=== PATIENT | female | born 1955 | race Caucasian/White ===

== ENCOUNTER 2016-12-27 21:03 | Emergency (ER) | payer MEDICAID ==
[~2016-12-27] VITALS: Ht 134.6 cm; Wt 68.2 kg
[~2016-12-27 21:03] MED LIST: ASPI-556 PO; GLIP10 PO; LISI-662 PO; METF500T4 PO; METO-323 PO; PRAV20TA4 PO
[2016-12-27 21:22] LABS: GLUCOSE COMMENT 1 Doctor Notified; GLUCOSE,POINT OF CARE 190 MG/DL (70-110)
[2016-12-27 21:27] VITALS: BP 147/86
== END 2016-12-27 21:51 | disposition home or self-care (01) ==
LOC: EMS 21:04
DX: S05.02XA Injury of conjunctiva and corneal abrasion without foreign body, left eye, initial encounter (principal); E11.9 Type 2 diabetes mellitus without complications; I10 Essential (primary) hypertension; Z79.82 Long term (current) use of aspirin; W22.8XXA Striking against or struck by other objects, initial encounter; Y93.89 Activity, other specified; Y92.89 Other specified places as the place of occurrence of the external cause; Y99.8 Other external cause status
CPT/HCPCS: 82962; 99283

== ENCOUNTER 2019-06-13 14:56 | Inpatient (IN) | payer MEDICAID ==
[~2019-06-13] VITALS: Ht 149.9 cm; Wt 70.9 kg
[~2019-06-13 14:56] MED LIST changes: +METF-960 PO; -METF500T4 PO; -METO-323 PO; +METO-408 PO
[2019-06-13 15:15] LABS: GLUCOSE,POINT OF CARE 184 MG/DL (70-110)
[2019-06-13 16:48] LABS: APPEARANCE,URINE CLEAR (CLEAR); BILIRUBIN,URINE NEGATIVE (NEGATIVE); GLUCOSE, URINE (UA) NEGATIVE (NEGATIVE); KETONES,URINE TRACE mg/dL (NEGATIVE); LEUKOCYTE ESTERASE ,URINE SMALL (NEGATIVE); NITRATE,URINE NEGATIVE (NEGATIVE); OCCULT BLOOD,URINE SMALL (NEGATIVE); PROTEIN,URINE POS 1+ (NEGATIVE); UROBILINOGEN,URINE 0.2 mg/dL (<=1.0)
[2019-06-13 16:58] LABS: BASOPHILS % (AUTO) 0.2 % (0.0-2.0); EOSINOPHILS % (AUTO) 1.8 % (1.0-6.0); HEMATOCRIT 43.4 % (36-46); HEMOGLOBIN 13.8 g/dL (12.0-16.0); LYMPHOCYTES # (AUTO) 0.6 K/uL (1.0-4.8); LYMPHOCYTES % (AUTO) 4.8 % (22.0-44.0); MEAN CORPUSCULAR HEMOGLOBIN 28.7 pg (26.0-34.0); MEAN CORPUSCULAR HGB CONC 31.7 G/dL (31.0-37.0); MEAN CORPUSCULAR VOLUME 90 fL (80-100); MONOCYTES # (AUTO) 0.4 K/uL (0.1-1.0); MONOCYTES % (AUTO) 3.3 % (2.0-9.0); NEUTROPHILS # (AUTO) 10.6 K/uL (1.8-7.7); NEUTROPHILS % (AUTO) 89.9 % (40.0-70.0); PLATELET COUNT (AUTO) 202 K/uL (150-450); RED CELL DISTRIBUTION WIDTH 14.1 % (11.5-14.5)
[2019-06-13] MEDS ORDERED: ACETAMINOPHEN 500 MG TABLET PO ONE (17:00)
[2019-06-13] MEDS ORDERED: ONDANSETRON HCL 4 MG/2 ML VIAL IVP ONE (17:00)
[2019-06-13] MEDS ORDERED: MAG HYDROX/AL HYDROX/SIMETH 30 ML SUSP UDCUP PO ONE (17:00)
[2019-06-13] MEDS ORDERED: FAMOTIDINE 10 MG/ML 2 ML VIAL IVP ONE (17:00)
[2019-06-13 17:01] LABS: BACTERIA,URINE Few /HPF (None Seen); RBC,URINE 0-2 /HPF (0-2); SQUAMOUS EPITHELIAL CELL,UR Moderate /LPF (None Seen)
[2019-06-13 17:02] LABS: MUCUS,URINE Few LPF (None Seen)
[2019-06-13 17:08] LABS: ANION GAP 11 mmol/L (8-16); CARBON DIOXIDE 24 mmol/L (22-29); CHLORIDE 104 mmol/L (98-107); GLOMERULAR FILTR. RATE CALC > 60 mL/min (>60); GLUCOSE,RANDOM 196 mg/dL (70-110); SODIUM SERUM 139 mmol/L (136-145); UREA NITROGEN, BLOOD 19 mg/dL (7-18)
[2019-06-13 17:13] LABS: ALANINE AMINOTRANSFERASE 15 U/L (12-78); ALKALINE PHOSPHATASE 122 U/L (46-116); ASPARTATE AMINOTRANSFERASE 18 U/L (15-37); BILIRUBIN,TOTAL 0.5 mg/dL (0.1-1.0); LIPASE 355 U/L (73-393); TOTAL PROTEIN, SERUM 7.8 g/dL (6.4-8.2)
[2019-06-13] MEDS ORDERED: SODIUM CHLORIDE 0.9% 100 ML ONE (18:28)
[2019-06-13] MEDS ORDERED: IOVERSOL 350 MG/ML 150 ML VIAL ONE (18:28)
[2019-06-13 21:19] LABS: GLUCOSE,POINT OF CARE 152 MG/DL (70-110)
[2019-06-13] MEDS ORDERED: DEXTROSE 50%-WATER 25 GM/50 ML SYRINGE IVP PRN (21:45)
[2019-06-13] MEDS ORDERED: POTASSIUM CHLORIDE 20 MEQ ER TABLET PO PRN (21:45)
[2019-06-13] MEDS ORDERED: MAGNESIUM SULFATE 4 GM/WATER 100 ML IV PRN (21:45)
[2019-06-13] MEDS ORDERED: 0.9% SODIUM CHLORIDE 10 ML SYRINGE IVP PRN (21:45)
[2019-06-13] MEDS ORDERED: MAGNESIUM OXIDE 400 MG TABLET PO PRN (21:45)
[2019-06-13] MEDS ORDERED: MAGNESIUM SULFATE 2 GM/WATER 50 ML IV PRN (21:45)
[2019-06-13] MEDS ORDERED: INSULIN LISPRO 100 UNITS/ML SQ PRN (21:45)
[2019-06-13] MEDS ORDERED: ONDANSETRON HCL 4 MG/2 ML VIAL IVP PRN (21:45)
[2019-06-13] MEDS ORDERED: POTASSIUM CHL 10 MEQ/WATER 50 ML IV PRN (21:45)
[2019-06-14] MEDS: HEPARIN SODIUM,PORCINE 5,000 UNITS/ML VIAL SQ SCH ×2 (00:15→09:38)
[2019-06-14 05:56] LABS: GLUCOSE,POINT OF CARE 160 MG/DL (70-110)
[2019-06-14 07:35] LABS: GLUCOSE,POINT OF CARE 174 MG/DL (70-110)
[2019-06-14 08:27] LABS: BASOPHILS % (AUTO) 0.6 % (0.0-2.0); EOSINOPHILS % (AUTO) 4.5 % (1.0-6.0); HEMATOCRIT 41.8 % (36-46); HEMOGLOBIN 13.5 g/dL (12.0-16.0); LYMPHOCYTES % (AUTO) 18.7 % (22.0-44.0); MEAN CORPUSCULAR HEMOGLOBIN 29.1 pg (26.0-34.0); MEAN CORPUSCULAR HGB CONC 32.3 G/dL (31.0-37.0); MEAN CORPUSCULAR VOLUME 90 fL (80-100); MONOCYTES # (AUTO) 0.3 K/uL (0.1-1.0); MONOCYTES % (AUTO) 5.7 % (2.0-9.0); NEUTROPHILS # (AUTO) 3.7 K/uL (1.8-7.7); NEUTROPHILS % (AUTO) 70.5 % (40.0-70.0); PLATELET COUNT (AUTO) 191 K/uL (150-450); RED BLOOD CELL COUNT(AUTO) 4.64 MIL/uL (4.00-5.20); RED CELL DISTRIBUTION WIDTH 13.8 % (11.5-14.5)
[2019-06-14] MEDS ORDERED: PANTOPRAZOLE SODIUM 40 MG DR TABLET PO SCH (09:00)
[2019-06-14] MEDS ORDERED: PRAVASTATIN SODIUM 20 MG TABLET PO SCH (09:00)
[2019-06-14] MEDS ORDERED: LISINOPRIL 20 MG TABLET PO SCH (09:00)
[2019-06-14] MEDS ORDERED: METOPROLOL SUCCINATE 25 MG ER TABLET PO SCH (09:00)
[2019-06-14] MEDS ORDERED: ASPIRIN 81 MG EC TABLET PO SCH (09:00)
[2019-06-14 09:02] LABS: ANION GAP 8 mmol/L (8-16); CALCIUM, TOTAL 8.6 mg/dL (8.8-10.5); CARBON DIOXIDE 26 mmol/L (22-29); CHLORIDE 104 mmol/L (98-107); CREATININE 0.78 mg/dL (0.60-1.30); GLOMERULAR FILTR. RATE CALC > 60 mL/min (>60); GLUCOSE,RANDOM 175 mg/dL (70-110); POTASSIUM 3.9 mmol/L (3.5-5.1); SODIUM SERUM 138 mmol/L (136-145); UREA NITROGEN, BLOOD 15 mg/dL (7-18)
[2019-06-14 09:47] VITALS: BP 122/89
[2019-06-14 12:36] VITALS: BP 126/57
[2019-06-14] MEDS ORDERED: MAG HYDROX/AL HYDROX/SIMETH 30 ML SUSP UDCUP PO ONE (15:00)
[2019-06-14 15:47] VITALS: BP 120/72
[2019-06-15 20:20] LABS: GLUCOMETER DEV NAME(LOC) 5S.2A; GLUCOSE,POINT OF CARE 235 MG/DL (70-110)
== END 2019-06-14 15:30 | disposition home or self-care (01) | DRG 198 ==
LOC: EMS 14:57 → 5S 06-14 04:30
PROVIDERS: ADMIT Internal Medicine; ATTEND Internal Medicine
DX: I20.8 Other forms of angina pectoris (principal); E11.9 Type 2 diabetes mellitus without complications; I10 Essential (primary) hypertension; E78.5 Hyperlipidemia, unspecified; R00.0 Tachycardia, unspecified; E78.00 Pure hypercholesterolemia, unspecified; Z88.0 Allergy status to penicillin; Z82.49 Family history of ischemic heart disease and other diseases of the circulatory system; Z83.3 Family history of diabetes mellitus; Z90.13 Acquired absence of bilateral breasts and nipples; Z79.899 Other long term (current) drug therapy
CPT/HCPCS: 71260; 72193; 74160; 83735; 87086; 93005; 93306; G0378; J1644; J2405; J3490; J7050

== ENCOUNTER 2022-06-04 21:40 | Emergency (ER) | payer MEDICAID, OTHER ==
[~2022-06-04] VITALS: Ht 147.3 cm; Wt 70.9 kg
[~2022-06-04 21:40] MED LIST changes: -GLIP10 PO; +GLIP10TA10 PO; -LISI-662 PO; +LISI-894 PO; +METF-1211 PO; -METF-960 PO
[2022-06-04] MEDS ORDERED: ACETAMINOPHEN 500 MG TABLET PO ONE (22:30)
[2022-06-04 23:37] VITALS: BP 142/79
== END 2022-06-05 00:12 | disposition home or self-care (01) ==
LOC: EMS 21:41
DX: S93.524A Sprain of metatarsophalangeal joint of right lesser toe(s), initial encounter (principal); E11.9 Type 2 diabetes mellitus without complications; E78.00 Pure hypercholesterolemia, unspecified; I10 Essential (primary) hypertension; Z90.13 Acquired absence of bilateral breasts and nipples; Z88.0 Allergy status to penicillin; X58.XXXA Exposure to other specified factors, initial encounter; Y93.89 Activity, other specified; Y92.89 Other specified places as the place of occurrence of the external cause; Y99.8 Other external cause status
CPT/HCPCS: 99283

== ENCOUNTER 2022-08-05 12:57 | Emergency (ER) | payer OTHER ==
[~2022-08-05] VITALS: Ht 154.9 cm; Wt 77.3 kg
[2022-08-05] MEDS ORDERED: ACETAMINOPHEN 160 MG/5 ML SUSPENSION UDCUP PO ONE (13:30)
[2022-08-05] MEDS ORDERED: KETOROLAC TROMETHAMINE 30 MG/ML VIAL IVP ONE (13:30)
[2022-08-05] MEDS ORDERED: SODIUM CHLORIDE 0.9% 2,300 ML IV ONE (13:30)
[2022-08-05] MEDS ORDERED: 0.9% SODIUM CHLORIDE 10 ML SYRINGE IVP PRN (13:30)
[2022-08-05] MEDS ORDERED: CefTRIAXone 1 GM/DEXTROSE 50 ML IV ONE (13:30)
[2022-08-05 13:59] LABS: BASOPHILS % (AUTO) 0.5 % (0.0-2.0); EOSINOPHILS % (AUTO) 0 % (1.0-6.0); HEMOGLOBIN 13.2 g/dL (12.0-16.0); LYMPHOCYTES # (AUTO) 1.4 K/uL (1.0-4.8); LYMPHOCYTES % (AUTO) 7.9 % (22.0-44.0); MEAN CORPUSCULAR HEMOGLOBIN 29.5 pg (26.0-34.0); MEAN CORPUSCULAR VOLUME 89 fL (80-100); MONOCYTES # (AUTO) 0.9 K/uL (0.1-1.0); MONOCYTES % (AUTO) 5.3 % (2.0-9.0); NEUTROPHILS # (AUTO) 15.1 K/uL (1.8-7.7); PLATELET COUNT (AUTO) 194 K/uL (150-450); RED BLOOD CELL COUNT(AUTO) 4.49 MIL/uL (4.00-5.20); RED CELL DISTRIBUTION WIDTH 13.8 % (11.5-14.5)
[2022-08-05 14:00] LABS: NEUTROPHILS % (AUTO) 86.3 % (40.0-70.0)
[2022-08-05 14:09] LABS: CALCIUM, TOTAL 9.4 mg/dL (8.8-10.5); CREATININE 0.94 mg/dL (0.60-1.30); POTASSIUM 4.2 mmol/L (3.5-5.1)
[2022-08-05 14:10] LABS: COVID AG,FIA SOURCE NASAL SWAB
[2022-08-05 14:15] LABS: ALBUMIN 3.3 g/dL (3.4-5.0); BILIRUBIN,TOTAL 0.4 mg/dL (0.1-1.0)
[2022-08-05 14:22] LABS: LACTIC ACID 1.4 mmol/L (0.4-2.0)
[2022-08-05 14:28] LABS: RAPID GROUP A STREP POSITIVE (NEGATIVE)
[2022-08-05] MEDS ORDERED: LIDOCAINE 2% VISCOUS 15 ML SOLUTION UDCUP PO ONE (14:45)
[2022-08-05 14:50] LABS: INFLUENZA TYPE A NEGATIVE FOR TYPE A (NEGATIVE); INFLUENZA TYPE B NEGATIVE FOR TYPE B (NEGATIVE)
[2022-08-05] MEDS ORDERED: CEPH-558 PO (15:13)
[2022-08-05] MEDS ORDERED: IBUP-2759 PO (15:13)
[2022-08-05] MEDS ORDERED: ACET12.54 PO (15:13)
[2022-08-05 15:36] VITALS: BP 120/70
== END 2022-08-05 15:40 | disposition home or self-care (01) ==
LOC: EMS 13:07
DX: R52 Pain, unspecified (principal); J02.0 Streptococcal pharyngitis; E11.65 Type 2 diabetes mellitus with hyperglycemia; E11.9 Type 2 diabetes mellitus without complications; E78.00 Pure hypercholesterolemia, unspecified; I10 Essential (primary) hypertension; Z88.0 Allergy status to penicillin; Z90.13 Acquired absence of bilateral breasts and nipples; Z20.822 Contact with and (suspected) exposure to COVID-19
CPT/HCPCS: 99291; 96365; 71045; 96375; 87426; 80053; 82962; 83605; 84484; 85025; 87040; 87430; 87804; 36415; 93005; J0696; J1885; J7030; 96374

== ENCOUNTER 2022-08-26 08:47 | Emergency (ER) | payer OTHER ==
[~2022-08-26] VITALS: Ht 154.9 cm; Wt 67.3 kg
[~2022-08-26 08:47] MED LIST changes: +ACET12.54 PO; +CEPH-558 PO; +IBUP-2759 PO
[2022-08-26 09:30] LABS: COVID AG,FIA SOURCE NASAL SWAB
[2022-08-26 10:04] LABS: RAPID GROUP A STREP NEGATIVE (NEGATIVE)
[2022-08-26 10:26] LABS: INFLUENZA TYPE A NEGATIVE FOR TYPE A (NEGATIVE); INFLUENZA TYPE B NEGATIVE FOR TYPE B (NEGATIVE)
[2022-08-26] MEDS ORDERED: KETOROLAC TROMETHAMINE 60 MG/2 ML VIAL IM ONE (12:30)
[2022-08-26 13:09] LABS: BASOPHILS % (AUTO) 0.4 % (0.0-2.0); EOSINOPHILS % (AUTO) 2.6 % (1.0-6.0); HEMATOCRIT 37.4 % (36-46); HEMOGLOBIN 12.4 g/dL (12.0-16.0); LYMPHOCYTES # (AUTO) 1.8 K/uL (1.0-4.8); LYMPHOCYTES % (AUTO) 24.1 % (22.0-44.0); MEAN CORPUSCULAR HEMOGLOBIN 30.8 pg (26.0-34.0); MEAN CORPUSCULAR HGB CONC 33.2 G/dL (31.0-37.0); MEAN CORPUSCULAR VOLUME 93 fL (80-100); MONOCYTES # (AUTO) 0.4 K/uL (0.1-1.0); MONOCYTES % (AUTO) 4.8 % (2.0-9.0); NEUTROPHILS # (AUTO) 5.1 K/uL (1.8-7.7); NEUTROPHILS % (AUTO) 68.1 % (40.0-70.0); PLATELET COUNT (AUTO) 237 K/uL (150-450); RED BLOOD CELL COUNT(AUTO) 4.03 MIL/uL (4.00-5.20); RED CELL DISTRIBUTION WIDTH 13.7 % (11.5-14.5)
[2022-08-26 13:16] LABS: ANION GAP 7 mmol/L (8-16); CALCIUM, TOTAL 9.3 mg/dL (8.8-10.5); CARBON DIOXIDE 27 mmol/L (22-29); CHLORIDE 104 mmol/L (98-107); CREATININE 0.68 mg/dL (0.60-1.30); GLUCOSE,RANDOM 189 mg/dL (70-110); POTASSIUM 4.3 mmol/L (3.5-5.1); SODIUM SERUM 138 mmol/L (136-145); UREA NITROGEN, BLOOD 12 mg/dL (7-18)
[2022-08-26 13:19] LABS: GLOMERULAR FILTR. RATE CALC > 60 mL/min (>60)
[2022-08-26 13:23] LABS: ALANINE AMINOTRANSFERASE 22 U/L (12-78); ALBUMIN 3.2 g/dL (3.4-5.0); ALKALINE PHOSPHATASE 111 U/L (46-116); ASPARTATE AMINOTRANSFERASE 16 U/L (15-37); BILIRUBIN,TOTAL 0.3 mg/dL (0.1-1.0); TOTAL PROTEIN, SERUM 7.9 g/dL (6.4-8.2)
[2022-08-26 13:32] LABS: C-REACTIVE PROTEIN QUANT 2.65 mg/dL (0.00-0.30)
[2022-08-26] MEDS ORDERED: IBUP-1554 PO (15:22)
[2022-08-26] MEDS ORDERED: BACL10TA PO (15:22)
[2022-08-26 15:34] VITALS: BP 145/70
== END 2022-08-26 15:41 | disposition home or self-care (01) ==
LOC: EMS 08:50
DX: M54.2 Cervicalgia (principal); M54.89 Other dorsalgia; E11.65 Type 2 diabetes mellitus with hyperglycemia; E78.00 Pure hypercholesterolemia, unspecified; I10 Essential (primary) hypertension; Z90.13 Acquired absence of bilateral breasts and nipples; Z88.0 Allergy status to penicillin; Z20.822 Contact with and (suspected) exposure to COVID-19
CPT/HCPCS: 99285; 71045; 87426; 80053; 82962; 84484; 85025; 86140; 87430; 87804; 36415; 72040; 72070; 93005; 96372; J1885

== ENCOUNTER 2023-08-30 12:03 | Emergency (ER) | payer OTHER ==
[~2023-08-30] VITALS: Ht 149.9 cm; Wt 63.6 kg
[~2023-08-30 12:03] MED LIST changes: -ACET12.54 PO; -ASPI-556 PO; +BACL10TA PO; +IBUP-1554 PO; -IBUP-2759 PO; +IBUP-45 PO
[2023-08-30 12:14] VITALS: BP 147/76; PULSE 74; RESP 16; TEMP 98.4
[2023-08-30 12:45] LABS: APPEARANCE,URINE HAZY (CLEAR); COLOR,URINE DARK ORANGE (YELLOW); GLUCOSE, URINE (UA) 300-500 mg/dL (NEGATIVE); KETONES,URINE NEGATIVE (NEGATIVE); LEUKOCYTE ESTERASE ,URINE MODERATE (NEGATIVE); NITRATE,URINE POSITIVE (NEGATIVE); OCCULT BLOOD,URINE LARGE (NEGATIVE); PH,URINE 5.5 (5.0-8.0); PROTEIN,URINE 30-70 mg/dL (NEGATIVE); SPECIFIC GRAVITIY, URINE 1.023 (1.003-1.030)
[2023-08-30 12:46] LABS: BILIRUBIN,URINE SMALL (NEGATIVE)
[2023-08-30 12:54] LABS: BACTERIA,URINE Few /HPF (None Seen); RBC,URINE 51-100 /HPF (0-2); SQUAMOUS EPITHELIAL CELL,UR Few /LPF (None Seen)
[2023-08-30] MEDS ORDERED: SULFAMETHOX/TRIMETH DS 800-160 MG/TABLET PO ONE (14:00)
[2023-08-30] MEDS ORDERED: METO25 PO (14:03)
[2023-08-30] MEDS ORDERED: SITA100 PO (14:03)
[2023-08-30] MEDS ORDERED: ATOR40TA71 PO (14:03)
[2023-08-30 14:23] LABS: BASOPHILS % (AUTO) 0.6 % (0.0-2.0); EOSINOPHILS % (AUTO) 1.7 % (1.0-6.0); LYMPHOCYTES # (AUTO) 1.7 K/uL (1.0-4.8); LYMPHOCYTES % (AUTO) 22.8 % (22.0-44.0); MEAN CORPUSCULAR HEMOGLOBIN 29.6 pg (26.0-34.0); MEAN CORPUSCULAR HGB CONC 33.5 G/dL (31.0-37.0); MEAN CORPUSCULAR VOLUME 89 fL (80-100); MONOCYTES # (AUTO) 0.4 K/uL (0.1-1.0); MONOCYTES % (AUTO) 5.8 % (2.0-9.0); NEUTROPHILS # (AUTO) 5.1 K/uL (1.8-7.7); NEUTROPHILS % (AUTO) 69.1 % (40.0-70.0); PLATELET COUNT (AUTO) 209 K/uL (150-450); RED BLOOD CELL COUNT(AUTO) 4.06 MIL/uL (4.00-5.20); RED CELL DISTRIBUTION WIDTH 13.7 % (11.5-14.5); WHITE BLOOD COUNT (AUTO) 7.3 K/uL (4.5-11.0)
[2023-08-30 14:32] LABS: ANION GAP 10 mmol/L (8-16); CARBON DIOXIDE 26 mmol/L (22-29); CHLORIDE 102 mmol/L (98-107); CREATININE 0.85 mg/dL (0.60-1.30); GLOMERULAR FILTR. RATE CALC > 60 mL/min (>60); GLUCOSE,RANDOM 232 mg/dL (70-110); POTASSIUM 3.9 mmol/L (3.5-5.1); SODIUM SERUM 138 mmol/L (136-145); UREA NITROGEN, BLOOD 17 mg/dL (7-18)
[2023-08-30 14:38] LABS: ALANINE AMINOTRANSFERASE 27 U/L (12-78); ALBUMIN 3.2 g/dL (3.4-5.0); ALKALINE PHOSPHATASE 104 U/L (46-116); ASPARTATE AMINOTRANSFERASE 20 U/L (15-37); BILIRUBIN,TOTAL 0.4 mg/dL (0.1-1.0); TOTAL PROTEIN, SERUM 7.4 g/dL (6.4-8.2)
[2023-08-30] MEDS ORDERED: NITR100C4 PO ×2 (15:17→19:34)
== END 2023-08-30 15:24 | disposition home or self-care (01) ==
LOC: EMS 12:03
DX: N39.0 Urinary tract infection, site not specified (principal); E11.9 Type 2 diabetes mellitus without complications; E78.00 Pure hypercholesterolemia, unspecified; I10 Essential (primary) hypertension; Z90.710 Acquired absence of both cervix and uterus; Z90.13 Acquired absence of bilateral breasts and nipples; Z88.0 Allergy status to penicillin
CPT/HCPCS: 80053; 81001; 82962; 85025; 87086; 87186; 99283

== ENCOUNTER 2024-07-13 11:56 | Emergency (ER) | payer OTHER ==
[~2024-07-13] VITALS: Ht 121.9 cm; Wt 67.0 kg
[~2024-07-13 11:56] MED LIST changes: +ATOR40TA71 PO; -CEPH-558 PO; -GLIP10TA10 PO; +GLIP10TA17 PO; -IBUP-45 PO; -METO-408 PO; +METO25 PO; +NITR100C4 PO; -PRAV20TA4 PO; +SITA100 PO
[2024-07-13] MEDS ORDERED: 0.9% SODIUM CHLORIDE 10 ML SYRINGE IVP PRN (12:15)
[2024-07-13 12:26] LABS: BASOPHILS % (AUTO) 0.5 % (0.0-2.0); EOSINOPHILS % (AUTO) 0.1 % (1.0-6.0); HEMATOCRIT 41.6 % (36-46); HEMOGLOBIN 13.5 g/dL (12.0-16.0); LYMPHOCYTES # (AUTO) 0.8 K/uL (1.0-4.8); LYMPHOCYTES % (AUTO) 5.4 % (22.0-44.0); MEAN CORPUSCULAR HEMOGLOBIN 29.3 pg (26.0-34.0); MEAN CORPUSCULAR HGB CONC 32.3 G/dL (31.0-37.0); MEAN CORPUSCULAR VOLUME 91 fL (80-100); MONOCYTES # (AUTO) 0.6 K/uL (0.1-1.0); MONOCYTES % (AUTO) 4.3 % (2.0-9.0); NEUTROPHILS # (AUTO) 12.6 K/uL (1.8-7.7); PLATELET COUNT (AUTO) 204 K/uL (150-450); RED BLOOD CELL COUNT(AUTO) 4.58 MIL/uL (4.00-5.20); RED CELL DISTRIBUTION WIDTH 13.8 % (11.5-14.5); WHITE BLOOD COUNT (AUTO) 14.1 K/uL (4.5-11.0)
[2024-07-13 12:31] LABS: COVID AG,FIA SOURCE NASAL SWAB
[2024-07-13 12:34] LABS: NEUTROPHILS % (AUTO) 89.7 % (40.0-70.0)
[2024-07-13 12:44] LABS: LACTIC ACID 1.8 mmol/L (0.4-2.0)
[2024-07-13 12:45] LABS: TROPONIN I-HIGH SENSITIVITY Less Than 4 ng/L (<51)
[2024-07-13 12:49] LABS: B-TYPE NATRIURETIC PEPTIDE 71 pg/mL (0-100)
[2024-07-13 12:52] LABS: ANION GAP 13 mmol/L (8-16); CALCIUM, TOTAL 8.5 mg/dL (8.8-10.5); CARBON DIOXIDE 23 mmol/L (22-29); CHLORIDE 99 mmol/L (98-107); CREATININE 0.74 mg/dL (0.60-1.30); GLOMERULAR FILTR. RATE CALC > 60 mL/min (>60); GLUCOSE,RANDOM 208 mg/dL (70-110); POTASSIUM 3.6 mmol/L (3.5-5.1); SODIUM SERUM 135 mmol/L (136-145); UREA NITROGEN, BLOOD 14 mg/dL (7-18)
[2024-07-13 12:56] LABS: INFLUENZA TYPE A NEGATIVE FOR TYPE A (NEGATIVE); INFLUENZA TYPE B NEGATIVE FOR TYPE B (NEGATIVE)
[2024-07-13 12:57] LABS: ALANINE AMINOTRANSFERASE 19 U/L (12-78); ALBUMIN 3.6 g/dL (3.4-5.0); ALKALINE PHOSPHATASE 120 U/L (46-116); ASPARTATE AMINOTRANSFERASE 20 U/L (15-37); BILIRUBIN,TOTAL 0.7 mg/dL (0.1-1.0); CREATINE KINASE, TOTAL ONLY 30 U/L (26-192); LIPASE 125 U/L (16-77); TOTAL PROTEIN, SERUM 7.7 g/dL (6.4-8.2)
[2024-07-13 13:00] LABS: SARS-COV2 (COVID) ANTIGEN,FIA Negative (Negative)
[2024-07-13] MEDS: ACETAMINOPHEN 1000 MG/ISO-OSM 100 ML IV ONE (13:45)
[2024-07-13] MEDS: SODIUM CHLORIDE 0.9% 2,000 ML IV ONE (13:45)
[2024-07-13 14:31] VITALS: TEMP 98.7
[2024-07-13] MEDS: IBUPROFEN 600 MG TABLET PO ONE (14:50)
[2024-07-13] MEDS ORDERED: 0.9% SODIUM CHLORIDE 10 ML SYRINGE IVP ONE (15:39)
[2024-07-13] MEDS ORDERED: SODIUM CHLORIDE 0.9% 100 ML ONE (15:39)
[2024-07-13] MEDS ORDERED: IOHEXOL 350 MG/ML 100 ML VIAL ONE (15:39)
[2024-07-13 16:08] LABS: APPEARANCE,URINE CLEAR (CLEAR); BILIRUBIN,URINE NEGATIVE (NEGATIVE); COLOR,URINE COLORLESS (YELLOW); GLUCOSE, URINE (UA) TRACE mg/dL (NEGATIVE); KETONES,URINE NEGATIVE (NEGATIVE); LEUKOCYTE ESTERASE ,URINE NEGATIVE (NEGATIVE); NITRATE,URINE NEGATIVE (NEGATIVE); OCCULT BLOOD,URINE SMALL (NEGATIVE); PROTEIN,URINE NEGATIVE (NEGATIVE); SPECIFIC GRAVITIY, URINE 1.012 (1.003-1.030); UROBILINOGEN,URINE <=1.0 mg/dL (<=1.0)
[2024-07-13 16:23] LABS: BACTERIA,URINE None Seen /HPF (None Seen); RBC,URINE 0-2 /HPF (0-2); WBC,URINE 0-2 /HPF (0-5)
[2024-07-13 16:24] LABS: SQUAMOUS EPITHELIAL CELL,UR Few /LPF (None Seen)
[2024-07-13 18:30] VITALS: BP 98/59; PULSE 80; RESP 20; O2SAT 96
[2024-07-13] MEDS ORDERED: ONDA-104 PO (18:31)
== END 2024-07-13 18:51 | disposition home or self-care (01) ==
LOC: EMS 11:56
DX: K52.9 Noninfective gastroenteritis and colitis, unspecified (principal); B34.9 Viral infection, unspecified; R11.2 Nausea with vomiting, unspecified; E11.65 Type 2 diabetes mellitus with hyperglycemia; E78.00 Pure hypercholesterolemia, unspecified; I11.9 Hypertensive heart disease without heart failure; Z88.0 Allergy status to penicillin; Z79.84 Long term (current) use of oral hypoglycemic drugs; Z90.13 Acquired absence of bilateral breasts and nipples; Z85.3 Personal history of malignant neoplasm of breast; Z90.49 Acquired absence of other specified parts of digestive tract; Z90.710 Acquired absence of both cervix and uterus; Z79.899 Other long term (current) drug therapy; Z20.822 Contact with and (suspected) exposure to COVID-19
CPT/HCPCS: 99285; 74177; 96365; 71045; 87426; 80053; 81001; 82550; 83605; 83690; 83880; 84484; 85025; 87040; 87804; 36415; 82962; 93005; 84145; Q9967; J7050; J0131

== ENCOUNTER 2024-08-23 19:32 | Emergency (ER) | payer OTHER ==
[~2024-08-23] VITALS: Ht 139.7 cm; Wt 70.0 kg
[~2024-08-23 19:32] MED LIST changes: +ONDA-104 PO
[2024-08-23 20:00] VITALS: TEMP 98.3
[2024-08-23 20:17] LABS: APPEARANCE,URINE HAZY (CLEAR); BILIRUBIN,URINE NEGATIVE (NEGATIVE); COLOR,URINE COLORLESS (YELLOW); GLUCOSE, URINE (UA) NEGATIVE (NEGATIVE); KETONES,URINE NEGATIVE (NEGATIVE); LEUKOCYTE ESTERASE ,URINE LARGE (NEGATIVE); NITRATE,URINE NEGATIVE (NEGATIVE); OCCULT BLOOD,URINE LARGE (NEGATIVE); PROTEIN,URINE 30-70 mg/dL (NEGATIVE); SPECIFIC GRAVITIY, URINE 1.009 (1.003-1.030); UROBILINOGEN,URINE <=1.0 mg/dL (<=1.0)
[2024-08-23 20:52] LABS: BACTERIA,URINE Rare /HPF (None Seen); SQUAMOUS EPITHELIAL CELL,UR None Seen /LPF (None Seen)
[2024-08-23] MEDS: ACETAMINOPHEN 325 MG TABLET PO ONE (22:35)
[2024-08-23] MEDS: SULFAMETHOX/TRIMETH DS 800-160 MG/TABLET PO ONE (23:23)
[2024-08-23] MEDS ORDERED: PHEN-846 PO (23:27)
[2024-08-23] MEDS ORDERED: SULF-261 PO (23:27)
[2024-08-24 00:05] VITALS: BP 146/64; PULSE 90; RESP 14; O2SAT 96
== END 2024-08-24 00:06 | disposition home or self-care (01) ==
LOC: EMS 19:32
DX: S90.122A Contusion of left lesser toe(s) without damage to nail, initial encounter (principal); N39.0 Urinary tract infection, site not specified; E11.9 Type 2 diabetes mellitus without complications; E78.00 Pure hypercholesterolemia, unspecified; I10 Essential (primary) hypertension; Z79.84 Long term (current) use of oral hypoglycemic drugs; Z88.0 Allergy status to penicillin; Z90.13 Acquired absence of bilateral breasts and nipples; Z90.710 Acquired absence of both cervix and uterus; X58.XXXA Exposure to other specified factors, initial encounter; Y93.89 Activity, other specified; Y92.89 Other specified places as the place of occurrence of the external cause; Y99.8 Other external cause status
CPT/HCPCS: 81001; 87077; 87086; 87186; 99284; 73660-TC; Z7502; Z7610